=== PATIENT | male | born 1940 | race Two or more races ===

== ENCOUNTER 2022-07-17 15:00 | Inpatient (IN) | payer MEDICARE, OTHER ==
[~2022-07-17] VITALS: Ht 162.6 cm; Wt 54.4 kg
--- NOTE | 2022-07-17 15:35 | NUR ---
BARON PA FROM SNF, UNABLE TO TOLERATE FOOD IN.POSSIBLE G TUBE PLACEMENT. PLACED IN BED, AWAKE ALERT- RESPONDING TO VERBAL STIMULI, BREATHING EVEN AND UNLABORED SATURATING AT 96%RA.
--- NOTE | 2022-07-17 16:15 | NUR ---
circus laborer at bedside
[2022-07-17 16:39] LABS: BASOPHILS % (AUTO) 0.1 % (0.0-2.0); CALCIUM, SERUM 9.5 mg/dL (8.5-10.1); CARBON DIOXIDE 22 mmol/L (21-32); CHLORIDE 106 mmol/L (98-107); CREATININE 0.9 mg/dL (0.6-1.3); EOSINOPHILS % (AUTO) 0.7 % (0.0-6.0); GLUCOSE 159 mg/dL (74-106); HEMATOCRIT 35 % (39-51); HEMOGLOBIN 11.7 g/dL (13.5-17.5); LYMPHOCYTES # (AUTO) 1.1 K/uL (0.8-4.8); MEAN CORPUSCULAR HGB CONC 34 g/dl (31.0-36.0); MEAN CORPUSCULAR VOLUME 88 fL (80-96); MONOCYTES # (AUTO) 0.6 K/uL (0.1-1.30); MONOCYTES % (AUTO) 8.6 % (2.0-12.0); NEUTROPHILS # (AUTO) 5.2 K/uL (1.8-8.9); NEUTROPHILS % (AUTO) 74.6 % (43.0-81.0); PLATELET COUNT (AUTO) 283 K/uL (150-450); POTASSIUM 4.2 mmol/L (3.5-5.1); RED BLOOD CELL COUNT(AUTO) 3.96 MIL/uL (4.5-6.0); SODIUM SERUM 137 mmol/L (136-145); UREA NITROGEN, BLOOD 24 mg/dL (7-18); WHITE BLOOD COUNT (AUTO) 6.9 K/uL (4.3-11.0)
[2022-07-17 16:45] LABS: ALANINE AMINOTRANSFERASE 31 U/L (12-78); ALKALINE PHOSPHATASE 55 U/L (46-116); ASPARTATE AMINOTRANSFERASE 18 U/L (15-37); BILIRUBIN,DIRECT 0.1 mg/dL (0.0-0.2); BILIRUBIN,TOTAL 0.3 mg/dL (0.2-1.0); LIPASE 85 U/L (73-393)
--- NOTE | 2022-07-17 16:55 | NUR ---
SWAB FOR COVID19 SENT TO LAB
--- NOTE | 2022-07-17 17:16 | NUR ---
MOVE SHEET SUBMITTED.
[2022-07-17] MEDS ORDERED: FINA5TAB11 PO (17:18)
[2022-07-17] MEDS ORDERED: IBUP-1953 PO (17:18)
[2022-07-17] MEDS ORDERED: DIVA-76 PO (17:18)
[2022-07-17] MEDS ORDERED: TAMS-12 PO (17:18)
[2022-07-17] MEDS ORDERED: RISP0.2515 PO (17:18)
[2022-07-17] MEDS ORDERED: ZOLP5TAB8 PO (17:18)
[2022-07-17] MEDS ORDERED: LISI10TA29 PO (17:18)
--- NOTE | 2022-07-17 17:23 | NUR ---
URINE SAMPLE SENT TO LAB
--- NOTE | 2022-07-17 17:58 | NUR ---
BED 308
--- NOTE | 2022-07-17 18:13 | NUR ---
REPORT GIVEN TO MARIA DEL CARMEN RN ROOM 308 FOR ALYSON
[2022-07-17 18:34] LABS: BILIRUBIN,URINE NEGATIVE (NEGATIVE); COLOR,URINE YELLOW (YELLOW); LEUKOCYTE ESTERASE ,URINE NEGATIVE (NEGATIVE); NITRITE, URINE NEGATIVE (NEGATIVE); PROTEIN,URINE NEGATIVE (NEGATIVE); UGLUCOSE NEGATIVE (NEGATIVE)
[2022-07-17] MEDS ORDERED: ONDANSETRON HCL/PF 4 MG/2 ML VIAL IVP PRN (19:00)
[2022-07-17] MEDS ORDERED: MAGNESIUM HYDROXIDE 30 ML UDC PO PRN (19:00)
[2022-07-17] MEDS ORDERED: MAG HYDROX/AL HYDROX/SIMETH 30 ML UDC PO PRN (19:00)
[2022-07-17] MEDS ORDERED: ACETAMINOPHEN 325 MG TABLET PO PRN (19:00)
[2022-07-17] MEDS ORDERED: IBUPROFEN 400 MG TABLET PO PRN (19:00)
[2022-07-17] MEDS ORDERED: ZOLPIDEM TARTRATE 5 MG TABLET PO PRN (19:00)
[2022-07-17] MEDS ORDERED: Z GUARD REMEDY 4 OZ OINT TP PRN (19:00)
[2022-07-17 19:03] LABS: BACTERIA,URINE None seen /HPF (None Seen); RBC,URINE 0-2 /HPF (0-2); SQUAMOUS EPITHELIAL CELL,UR None Seen /HPF (None Seen); WBC,URINE NONE SEEN /HPF (0-3)
--- NOTE | 2022-07-17 19:34 | NUR ---
BOAT CANVAS MAKER INSTALLER NOTE 82 Y/O MALE BROUGHT BY ED FROM SNF FOR PEG PLACEMENT WITH C/O FAILURE TO THRIVE. PATIENT IS A/O X 1, STABLE ON ROOM AIR, BREATHING EVENLY AND NO S/S OF DISTRESS NOTED; WITH NO IV ACCESS NOTED; TRIED IV INSERTION, TWICE, FAILED. VITALS TAKEN ARE FOLLOWS: BP-120/84 HR-105 RR-20 SPO2-98% ON RA. ORIENTED TO STAFF AND ROOM; ENCOURAGED VERBALIZATION OF NEEDS; SKIN ASSESSMENT WAS DONE AND NOTED INTACT SKIN EXCEPT FOR REDNESS ON SACRAL AREA; PATIENT'S BELONGINGS ACCOUNTED FOR; CONTACTED DR ; SAFETY MEASURES IMPLEMENTED, BED LOCKED IN LOWEST POSITION, SIDE RAILS UP X 2, CALL LIGHT AND TABLE WITHIN REACH; WILL ENDORSE TO THE NEXT SHIFT FOR ALYSON.
--- NOTE | 2022-07-17 19:45 | NUR ---
MS RN OPENING NOTE RECEIVED PT AWAKE IN BED. A/O X1 AND CONFUSED, CZECH SPEAKING ONLY. PT STABLE ON ROOM AIR. NO SOB OR S/S OF RESPIRATORY DISTRESS. BREATHING EVEN AND UNLABORED. NO IV ACCESS AT THIS TIME, WILL ATTEMPT. SAFETY PRECAUTIONS IN PLACE. BED IN LOWEST LOCKED POSITION, HOB ELEVATED, SIDE RAILS UP X3, BED ALARM ON, AND CALL LIGHT AND TABLE WITHIN REACH. ALL NEEDS MET AT THIS TIME.
[2022-07-17] MEDS: LISINOPRIL (10MG) 10 MG TABLET PO SCH (20:39)
[2022-07-18] MEDS: IV D5/0.45 NACL 1,000 ML IV PRN ×2 (01:13→17:51)
[2022-07-18 06:12] LABS: BASOPHILS % (AUTO) 0.3 % (0.0-2.0); HEMATOCRIT 34 % (39-51); HEMOGLOBIN 11.8 g/dL (13.5-17.5); LYMPHOCYTES # (AUTO) 1.2 K/uL (0.8-4.8); LYMPHOCYTES % (AUTO) 20.2 % (20.0-44.0); MEAN CORPUSCULAR HGB CONC 34 g/dl (31.0-36.0); MEAN CORPUSCULAR VOLUME 88 fL (80-96); MONOCYTES # (AUTO) 0.5 K/uL (0.1-1.30); MONOCYTES % (AUTO) 8.8 % (2.0-12.0); NEUTROPHILS # (AUTO) 4.1 K/uL (1.8-8.9); NEUTROPHILS % (AUTO) 69.7 % (43.0-81.0); PLATELET COUNT (AUTO) 287 K/uL (150-450); RED BLOOD CELL COUNT(AUTO) 3.93 MIL/uL (4.5-6.0); WHITE BLOOD COUNT (AUTO) 5.9 K/uL (4.3-11.0)
[2022-07-18 06:35] LABS: ALANINE AMINOTRANSFERASE 29 U/L (12-78); ALBUMIN 2.9 g/dL (3.4-5.0); ALKALINE PHOSPHATASE 50 U/L (46-116); ASPARTATE AMINOTRANSFERASE 13 U/L (15-37); BILIRUBIN,TOTAL 0.4 mg/dL (0.2-1.0); CALCIUM, SERUM 9.5 mg/dL (8.5-10.1); CARBON DIOXIDE 23 mmol/L (21-32); CHLORIDE 107 mmol/L (98-107); CREATININE 0.8 mg/dL (0.6-1.3); GLUCOSE 110 mg/dL (74-106); MAGNESIUM 2.2 mg/dL (1.8-2.4); PHOSPHORUS 3.4 mg/dL (2.5-4.9); SODIUM SERUM 138 mmol/L (136-145); TOTAL PROTEIN, SERUM 6.8 g/dL (6.4-8.2); UREA NITROGEN, BLOOD 18 mg/dL (7-18)
--- NOTE | 2022-07-18 06:35 | NUR ---
MS RN CLOSING NOTE PT RESTING IN BED, VERBALLY RESPONSIVE. A/O X1 AND CONFUSED, THAI SPEAKING ONLY. PT STABLE ON ROOM AIR. NO SOB OR S/S OF RESPIRATORY DISTRESS. BREATHING EVEN AND UNLABORED. IV ACCESS RFA 20G, INTACT AND PATENT, RUNNING D5 1/2 NS @ 75 ML/HR. ALL DUE MEDS GIVEN ORDERED. KEPT CLEAN AND DRY. TURNED AND REPOSITIONED Q2H. SAFETY PRECAUTIONS IN PLACE AT ALL TIMES. BED IN LOWEST LOCKED POSITION, HOB ELEVATED, SIDE RAILS UP X3, BED ALARM ON, AND CALL LIGHT AND TABLE WITHIN REACH. ALL NEEDS MET AT THIS TIME AND WILL ENDORSE TO ONCOMING NURSE FOR ALYSON.
--- NOTE | 2022-07-18 07:27 | NUR ---
OPENING NOTE PATIENT RECEIVED AWAKE, A/O X2, TAJIK SPEAKING, ON ROOM AIR NO S/S OF SOB. IV ACCESS ON RFA G 20, INTACT AND PATIENT, FLUSHING WELL. SKIN : SACRAL REDNESS, NO EDEMA PRESENT. CLEAR BILATERAL LUNG SOUNDS AND HYPERACTIVE BOWEL SOUNDS. FALL AND SAFETY PRECAUTIONS IN PLACE, BED LOCK AND AT THE LOWEST POSITION, SRx2 AND CALL LIGHT WITHIN REACH.
[2022-07-18 08:00] VITALS: BP 112/70
[2022-07-18] MEDS: risperiDONE 1 MG TABLET PO SCH ×2 (09:00→17:27)
[2022-07-18] MEDS: LISINOPRIL (10MG) 10 MG TABLET PO SCH ×2 (09:00→21:43)
[2022-07-18] MEDS: DIVALPROEX SODIUM 250 MG TABLET.DR PO SCH ×3 (09:00→17:27)
[2022-07-18] MEDS: TAMSULOSIN 0.4 MG CAP.SR.24H PO SCH (09:00)
[2022-07-18] MEDS: FINASTERIDE (5 MG) 5 MG TABLET PO SCH (09:00)
--- NOTE | 2022-07-18 09:43 | NUR ---
MEDICATION NOTE PATIENT NPO - WAITING SWALLOW EVALUATION, HX: [id number]
[2022-07-18 16:00] VITALS: BP 144/64
--- NOTE | 2022-07-18 19:30 | NUR ---
RN opening notes Pt is sitting in bed comfortably watching TV. Pt is alert and orientedX1 with episode of confusion. On room air. No SOB. No S/s of distress noted. Pt speaks Central African and able to make needs known. IV site at RFA# 20 is clean, intact and infusing well D5 1/2 ns@ 75 ml/hr. safety precautions is maintained. bed at low position, brakes locked, side rails upX3, hob elevated, bed alarm is on and call light is within reach. Will continue to monitor.
--- NOTE | 2022-07-18 19:55 | NUR ---
CLOSING NOTE PATIENT IS IN BED RESTING, A/O X2, LIBYAN SPEAKING, ON ROOM AIR NO S/S OF SOB. IV ACCESS REMAINS ON RFA G 20, INTACT AND PATIENT, FLUSHING WELL. FALL AND SAFETY PRECAUTIONS IN MAINTAINED, BED LOCK AND AT THE LOWEST POSITION, SRx2 AND CALL LIGHT WITHIN REACH.
[2022-07-18 20:00] VITALS: BP 114/70
--- NOTE | 2022-07-19 06:40 | NUR ---
RN closing notes Pt is resting in bed comfortably. Pt is alert and orientedX1 with episode of confusion. On room air. No SOB. No S/s of distress noted. VS is stable. Pt speaks Yakut and able to make needs known. IV site at RFA# 20 is clean, intact and infusing well D5 1/2 ns@ 75 ml/hr. Kept Pt clean, dry and comfortable. safety precautions is maintained. bed at low position, brakes locked, side rails upX3, hob elevated, bed alarm is on and call light is within reach. Will endorse to am nurse for Marci.
--- NOTE | 2022-07-19 07:10 | NUR ---
RN opening notes Received pt awake A/OX1 with bouts of confusion. On room air. No SOB. No S/s of distress noted. Pt speaks Argentine, SENIOR FINANCE MANAGER as staff interpreter and able to make needs known. IV site at RFA# 20 is clean, intact and infusing well D5 1/2 ns@ 75 ml/hr. safety precautions is maintained. bed at low position, brakes locked, side rails upX3, hob elevated, bed alarm is on and call light is within reach. Will continue to monitor.
[2022-07-19 08:38] VITALS: BP 128/95
[2022-07-19] MEDS: DIVALPROEX SODIUM 250 MG TABLET.DR PO SCH ×3 (09:07→16:09)
[2022-07-19] MEDS: TAMSULOSIN 0.4 MG CAP.SR.24H PO SCH (09:07)
[2022-07-19] MEDS: FINASTERIDE (5 MG) 5 MG TABLET PO SCH (09:08)
[2022-07-19] MEDS: LISINOPRIL (10MG) 10 MG TABLET PO SCH ×2 (09:08→20:39)
[2022-07-19] MEDS: risperiDONE 1 MG TABLET PO SCH ×2 (09:08→16:09)
[2022-07-19] MEDS: IV D5/0.45 NACL 1,000 ML IV PRN (15:11)
[2022-07-19 15:42] VITALS: BP 127/67
[2022-07-19] MEDS: ENSURE ENLIVE CHOC 237 ML CAN PO SCH (16:57)
--- NOTE | 2022-07-19 18:27 | NUR ---
RN closing notes Pt is resting in bed comfortably. Pt A/OX1 with episode of confusion. On room air. No SOB. No s/s of distress noted. VS is stable. Pt speaks Israeli, CLINICAL BIOCHEMIST as broach grinder, able to make needs known. IV site at RFA# 20 is clean, intact and infusing well D5 1/2 ns@ 75 ml/hr. Kept Pt clean, dry and comfortable. safety precautions is maintained. bed at low position, brakes locked, side rails upX3, hob elevated, bed alarm is on and call light is within reach. Will endorse to pm nurse for vijaya
--- NOTE | 2022-07-19 19:00 | NUR ---
RN opening notes Pt is sitting in bed comfortably watching TV. Pt is alert and orientedX1 with episode of confusion. On room air. No SOB. No S/s of distress noted. Pt speaks Ghanaian and able to make needs known. IV site at RFA# 20 is clean, intact and infusing well D5 1/2 ns@ 75 ml/hr. safety precautions is maintained. bed at low position, brakes locked, side rails upX3, hob elevated, bed alarm is on and call light is within reach. Will continue to monitor.
[2022-07-19 20:00] VITALS: BP 130/65
[2022-07-20] MEDS: IV D5/0.45 NACL 1,000 ML IV PRN (02:35)
--- NOTE | 2022-07-20 06:30 | NUR ---
RN closing notes Pt is resting in bed comfortably. Pt is alert and orientedX1 with episode of confusion. On room air. No SOB. No S/s of distress noted. VS is stable. Pt speaks German and able to make needs known. IV site at RFA# 20 is clean, intact and infusing well D5 1/2 ns@ 75 ml/hr. Routine meds were given as ordered. Kept Pt clean, dry and comfortable. safety precautions is maintained. bed at low position, brakes locked, side rails upX3, hob elevated, bed alarm is on and call light is within reach. Will endorse to am nurse for Marci.
--- NOTE | 2022-07-20 07:00 | NUR ---
RN opening notes Received pt awake A/OX1 with bouts of confusion. On room air. No SOB. No S/s of distress noted. Pt speaks Moldovan, load planner needed at bedside, able to make needs known. IV site at RFA# 20 is clean, intact and infusing well D5 1/2 ns@ 75 ml/hr. safety precautions is maintained. bed at low position, brakes locked, side rails upX3, hob elevated, bed alarm is on and call light is within reach. Will continue to monitor
[2022-07-20 07:30] VITALS: BP 117/58
[2022-07-20] MEDS: TAMSULOSIN 0.4 MG CAP.SR.24H PO SCH (08:38)
[2022-07-20] MEDS: FINASTERIDE (5 MG) 5 MG TABLET PO SCH (08:38)
[2022-07-20] MEDS: DIVALPROEX SODIUM 250 MG TABLET.DR PO SCH ×2 (08:38→12:31)
[2022-07-20] MEDS: risperiDONE 1 MG TABLET PO SCH (08:39)
[2022-07-20] MEDS: ENSURE ENLIVE CHOC 237 ML CAN PO SCH (08:40)
[2022-07-20] MEDS: LISINOPRIL (10MG) 10 MG TABLET PO SCH (08:44)
[2022-07-20 12:00] VITALS: BP 118/66
--- NOTE | 2022-07-20 13:30 | NUR ---
Patient discharged by MD on stable condition, A/O x1, speaks honduran, with supervisor pole yard at bedside. No belongings per admission records on chart. SNF & MTs were given discharge instructions both verbally and in writing. IV access removed, C/D/I. Patient left the unit in stable condition at 1248. Charge nurse aware.
== END 2022-07-20 12:48 | DRG 641 ==
LOC: ER 15:04 → MED 18:03
PROVIDERS: ADMIT Internal Medicine; ATTEND Internal Medicine
DX: R62.7 Adult failure to thrive (principal); N40.0 Benign prostatic hyperplasia without lower urinary tract symptoms; I10 Essential (primary) hypertension; Z79.899 Other long term (current) drug therapy; R26.9 Unspecified abnormalities of gait and mobility; F41.9 Anxiety disorder, unspecified; F31.9 Bipolar disorder, unspecified; F25.9 Schizoaffective disorder, unspecified; R13.10 Dysphagia, unspecified
CPT/HCPCS: 36415; 71045-TC; 80048-TC; 80053-TC; 80076-TC; 81001; 83690-TC; 83735-TC; 84100-TC; 84484-TC; 85025-TC; 85730-TC; 87081-TC; 87086-TC; 92526; 92611-TC; A4223; C9803; G0378; J3490; J7042

== ENCOUNTER 2024-01-23 12:04 | Emergency (ER) | payer MEDICARE, OTHER ==
[~2024-01-23] VITALS: Ht 157.5 cm; Wt 55.3 kg
[~2024-01-23 12:04] MED LIST: DIVA-76 PO; FINA5TAB11 GT; IBUP-1953 PO; LISI10TA29 PO; RISP0.2515 PO; TAMS-12 GT; ZOLP5TAB8 PO
[2024-01-23 12:15] VITALS: BP 144/69; TEMP 97.4; O2SAT 100
[2024-01-23] MEDS ORDERED: DIATR MEGLU/DIATRIZOATE SODIUM 30 ML BOTTLE (GASTROGRAPHIN) ONE (12:28)
[2024-01-24] MEDS ORDERED: LACT-96 GT (16:18)
[2024-01-24] MEDS ORDERED: HYDR-500 GT (16:18)
[2024-01-24] MEDS ORDERED: ACET325T53 GT (16:18)
[2024-01-24] MEDS ORDERED: DIVA125C5 GT (16:18)
[2024-01-24] MEDS ORDERED: CLON1PAT TD (16:18)
[2024-01-24] MEDS ORDERED: IPRA3AMP22 IH (16:18)
[2024-01-24] MEDS ORDERED: AMIN30LI27 GT (16:18)
[2024-01-24] MEDS ORDERED: TERA1CAP4 GT (16:18)
[2024-01-24] MEDS ORDERED: MULT-213 GT (16:18)
[2024-01-24] MEDS ORDERED: RISP0.5T65 GT (16:18)
[2024-01-24] MEDS ORDERED: BENZ-38 GT (16:18)
== END 2024-01-23 16:00 ==
LOC: ER 12:07
DX: Z46.59 Encounter for fitting and adjustment of other gastrointestinal appliance and device (principal); I10 Essential (primary) hypertension
CPT/HCPCS: 99284; 43762; 74018; Q9963

== ENCOUNTER 2024-01-24 12:42 | Emergency (ER) | payer MEDICARE, OTHER ==
[~2024-01-24] VITALS: Ht 160 cm; Wt 53.5 kg
[2024-01-24] MEDS ORDERED: DIATR MEGLU/DIATRIZOATE SODIUM 30 ML BOTTLE (GASTROGRAPHIN) ONE (14:47)
[2024-01-24 16:01] VITALS: BP 142/82; TEMP 98; O2SAT 98
[2024-01-24] MEDS ORDERED: BENZ-38 GT (16:18)
[2024-01-24] MEDS ORDERED: RISP0.5T65 GT (16:18)
[2024-01-24] MEDS ORDERED: HYDR-500 GT (16:18)
[2024-01-24] MEDS ORDERED: AMIN30LI27 GT (16:18)
[2024-01-24] MEDS ORDERED: DIVA125C5 GT (16:18)
[2024-01-24] MEDS ORDERED: TERA1CAP4 GT (16:18)
[2024-01-24] MEDS ORDERED: LACT-96 GT (16:18)
[2024-01-24] MEDS ORDERED: IPRA3AMP22 IH (16:18)
[2024-01-24] MEDS ORDERED: ACET325T53 GT (16:18)
[2024-01-24] MEDS ORDERED: MULT-213 GT (16:18)
[2024-01-24] MEDS ORDERED: CLON1PAT TD (16:18)
== END 2024-01-24 17:04 ==
LOC: ER 12:45
DX: Z46.59 Encounter for fitting and adjustment of other gastrointestinal appliance and device (principal); G93.41 Metabolic encephalopathy; E87.8 Other disorders of electrolyte and fluid balance, not elsewhere classified; E86.0 Dehydration; I10 Essential (primary) hypertension; Z86.69 Personal history of other diseases of the nervous system and sense organs; Z86.79 Personal history of other diseases of the circulatory system; Z87.19 Personal history of other diseases of the digestive system; Z87.39 Personal history of other diseases of the musculoskeletal system and connective tissue; Z86.59 Personal history of other mental and behavioral disorders
CPT/HCPCS: 99284; 43762; 74018; Q9963

== ENCOUNTER 2024-12-12 16:35 | Emergency (ER) | payer MEDICARE, OTHER ==
[~2024-12-12] VITALS: Ht 157.5 cm; Wt 58.5 kg
[~2024-12-12 16:35] MED LIST changes: +ACET325T53 GT; +AMIN30LI27 GT; +BENZ-38 GT; +CLON1PAT TD; -DIVA-76 PO; +DIVA125C5 GT; +HYDR-500 GT; -IBUP-1953 PO; +IPRA3AMP22 IH; +LACT-96 GT; -LISI10TA29 PO; +MULT-213 GT; -RISP0.2515 PO; +RISP0.5T65 GT; +TERA1CAP4 GT; -ZOLP5TAB8 PO
[2024-12-12 19:04] VITALS: BP 135/84; TEMP 98.9; O2SAT 99
== END 2024-12-12 19:04 ==
LOC: ER 16:46
DX: K94.23 Gastrostomy malfunction (principal); E11.9 Type 2 diabetes mellitus without complications; E78.5 Hyperlipidemia, unspecified; F03.94 Unspecified dementia, unspecified severity, with anxiety; F03.93 Unspecified dementia, unspecified severity, with mood disturbance; F31.9 Bipolar disorder, unspecified; I11.9 Hypertensive heart disease without heart failure; Z79.899 Other long term (current) drug therapy
CPT/HCPCS: 74018

== ENCOUNTER 2024-12-14 16:44 | Emergency (ER) | payer MEDICARE, OTHER ==
[~2024-12-14] VITALS: Ht 167.6 cm; Wt 58.5 kg
[2024-12-14] MEDS ORDERED: DIATR MEGLU/DIATRIZOATE SODIUM 30 ML BOTTLE (GASTROGRAPHIN) ONE (17:50)
[2024-12-14] MEDS ORDERED: POLYETHYLENE GLYCOL 3350 17 GM POWD.PACK PO ONE (18:00)
[2024-12-14 20:44] VITALS: BP 128/76; TEMP 98.3; O2SAT 99
== END 2024-12-14 20:44 ==
LOC: ER 16:50
DX: K94.23 Gastrostomy malfunction (principal); I11.9 Hypertensive heart disease without heart failure; E11.9 Type 2 diabetes mellitus without complications; F03.93 Unspecified dementia, unspecified severity, with mood disturbance; F20.9 Schizophrenia, unspecified; F31.9 Bipolar disorder, unspecified; N40.0 Benign prostatic hyperplasia without lower urinary tract symptoms
CPT/HCPCS: 99284; 43762; 74018; Q9963

== ENCOUNTER 2024-12-16 11:27 | Emergency (ER) | payer MEDICARE, OTHER ==
[~2024-12-16] VITALS: Ht 167.6 cm; Wt 58.5 kg
[2024-12-16 11:35] VITALS: BP 138/72; TEMP 98.3
[2024-12-16 11:47] VITALS: O2SAT 98
== END 2024-12-16 11:47 ==
LOC: ER 11:30
DX: K94.23 Gastrostomy malfunction (principal); E11.9 Type 2 diabetes mellitus without complications; E78.5 Hyperlipidemia, unspecified; F03.93 Unspecified dementia, unspecified severity, with mood disturbance; F03.94 Unspecified dementia, unspecified severity, with anxiety; F20.9 Schizophrenia, unspecified; F31.9 Bipolar disorder, unspecified; I11.9 Hypertensive heart disease without heart failure; N40.0 Benign prostatic hyperplasia without lower urinary tract symptoms

== ENCOUNTER 2025-01-18 00:32 | Emergency (ER) | payer MEDICARE, OTHER ==
[~2025-01-18] VITALS: Ht 170.2 cm; Wt 72.6 kg
[2025-01-18 01:04] VITALS: BP 113/60; TEMP 98
[2025-01-18] MEDS ORDERED: DIATR MEGLU/DIATRIZOATE SODIUM 30 ML BOTTLE (GASTROGRAPHIN) ONE (02:07)
[2025-01-18 03:02] VITALS: O2SAT 98
== END 2025-01-18 03:03 ==
LOC: ER 00:34
DX: K94.23 Gastrostomy malfunction (principal); I11.9 Hypertensive heart disease without heart failure; E11.9 Type 2 diabetes mellitus without complications; E78.5 Hyperlipidemia, unspecified; F03.93 Unspecified dementia, unspecified severity, with mood disturbance; F20.9 Schizophrenia, unspecified; F31.9 Bipolar disorder, unspecified; N40.0 Benign prostatic hyperplasia without lower urinary tract symptoms
CPT/HCPCS: 99284; 43762; 51702; 74018; Q9963

== ENCOUNTER 2025-02-10 12:40 | Emergency (ER) | payer MEDICARE, OTHER ==
[~2025-02-10] VITALS: Ht 170.2 cm; Wt 72.6 kg
[2025-02-10] MEDS ORDERED: DIATR MEGLU/DIATRIZOATE SODIUM 30 ML BOTTLE (GASTROGRAPHIN) ONE (12:55)
[2025-02-10 13:30] VITALS: BP 127/64; TEMP 98; O2SAT 96
[2025-02-11] MEDS ORDERED: DOCU50LI GT (19:30)
[2025-02-11] MEDS ORDERED: CRANBERRY GT (19:30)
[2025-02-11] MEDS ORDERED: GUAI-717 GT (19:30)
== END 2025-02-10 13:51 ==
LOC: ER 12:41
DX: K94.23 Gastrostomy malfunction (principal); N40.0 Benign prostatic hyperplasia without lower urinary tract symptoms; J96.10 Chronic respiratory failure, unspecified whether with hypoxia or hypercapnia; I11.9 Hypertensive heart disease without heart failure; F20.9 Schizophrenia, unspecified; F03.93 Unspecified dementia, unspecified severity, with mood disturbance; F31.9 Bipolar disorder, unspecified; E78.5 Hyperlipidemia, unspecified; E11.9 Type 2 diabetes mellitus without complications; Z46.59 Encounter for fitting and adjustment of other gastrointestinal appliance and device; Z46.6 Encounter for fitting and adjustment of urinary device
CPT/HCPCS: 99284; 43762; 74018; Q9963

== ENCOUNTER 2025-02-11 17:26 | Emergency (ER) | payer MEDICARE, OTHER ==
[~2025-02-11] VITALS: Ht 160 cm; Wt 57.6 kg
[2025-02-11 17:35] VITALS: TEMP 98.1
[2025-02-11] MEDS ORDERED: DIATR MEGLU/DIATRIZOATE SODIUM 30 ML BOTTLE (GASTROGRAPHIN) ONE (17:51)
[2025-02-11] MEDS: DIATR MEGLU/DIATRIZOATE SODIUM 30 ML BOTTLE (GASTROGRAPHIN) PO ONE (17:55)
[2025-02-11] MEDS ORDERED: CRANBERRY GT (19:30)
[2025-02-11] MEDS ORDERED: DOCU50LI GT (19:30)
[2025-02-11] MEDS ORDERED: GUAI-717 GT (19:30)
[2025-02-11 20:50] VITALS: BP 134/80; O2SAT 98
== END 2025-02-11 20:58 ==
LOC: ER 17:28
DX: K94.23 Gastrostomy malfunction (principal); E11.9 Type 2 diabetes mellitus without complications; E78.5 Hyperlipidemia, unspecified; F03.93 Unspecified dementia, unspecified severity, with mood disturbance; F20.9 Schizophrenia, unspecified; F31.9 Bipolar disorder, unspecified; I11.9 Hypertensive heart disease without heart failure; N40.0 Benign prostatic hyperplasia without lower urinary tract symptoms; Z46.59 Encounter for fitting and adjustment of other gastrointestinal appliance and device
CPT/HCPCS: 99285; 43762; 74018; Q9963 ×2